=== PATIENT | female | born 1935 | race Caucasian/White ===

== ENCOUNTER → 2016-08-29 | Outpatient (CLI) | payer OTHER, MEDICARE | LOC: BRMIMAGING 08:27 | PROVIDERS: ATTEND Family Medicine | DX: Z13.820 Encounter for screening for osteoporosis (principal); M81.0 Age-related osteoporosis without current pathological fracture; Z87.81 Personal history of (healed) traumatic fracture ==

== ENCOUNTER → 2017-05-08 | Outpatient (CLI) | payer OTHER, MEDICARE | LOC: BHFA 09:00 | PROVIDERS: ATTEND Internal Medicine Cardiovascular Disease | DX: R07.9 Chest pain, unspecified (principal) ==

== ENCOUNTER → 2017-06-12 | Outpatient (CLI) | payer OTHER, MEDICARE | LOC: CIMAGING 09:28 | PROVIDERS: ATTEND Family Medicine | DX: M75.92 Shoulder lesion, unspecified, left shoulder (principal); M79.632 Pain in left forearm | CPT/HCPCS: 73030-PO; 73060-PO ==

== ENCOUNTER 2017-10-31 22:11 | Emergency (ER) | payer OTHER, MEDICARE ==
[2017-10-31] MEDS ORDERED: NS 500 ML IV ONE (22:36)
[2017-10-31] MEDS ORDERED: ONDANSETRON 4 MG/2 ML VIAL IVP ONE (22:36)
[2017-10-31] MEDS ORDERED: MECLIZINE HCL 25 MG TAB PO ONE (22:37)
--- NOTE | 2017-10-31 22:46 | EDPHY ---
H & P Smoking Status: Never smoked Time Seen by Provider: 10/31/17 22:21 HPI/ROS: CHIEF COMPLAINT: Dizziness HISTORY OF PRESENT ILLNESS: Patient was feeling well today except feeling a little more irritable than usual. At 9:00 p.m. She was watching television when she had sudden onset of dizziness which she describes as the room spinning which lasted 10 minutes. She felt very dizzy and she was worse with movement of her head and she had episodes of vomiting. After 10 minutes the dizziness subsided quite a bit and now she just feels "a little bit dizzy", and still has some nausea and isn't quite back to normal. Denies headache or ear symptoms or hearing loss. No tinnitus. Denies chest pain or weakness or numbness in extremities or confusion or any difficulty with speech associated. REVIEW OF SYSTEMS: Eye: no change in vision ENT: No ear symptoms, no change in her voice. Cardiac: no chest pain or syncope Pulmonary: no cough or SOB Abdomen: No abdominal pain or diarrhea Musculoskeletal: No neck pain Skin: no rash Neuro: HPI Constitutional: no fever : no urinary symptoms A comprehensive 10 point review of systems is otherwise negative aside from elements mentioned in the history of present illness. PAST MEDICAL HISTORY: Includes Crohn's, hypertension, TIA 2 years ago which was expressive aphasia by her description Social history: Here with spouse General Appearance: Alert and conversant, cooperative. Eyes: No scleral icterus. Pupils equal reactive extraocular motion intact, has nystagmus when head turned to her right. No ptosis. ENT, Mouth: Normal mucous membranes. Normal tympanic membranes. Hearing aids removed for exam. Respiratory: Normal respiratory effort, breath sounds equal, lungs are clear to auscultation. Cardiovascular: Regular rate and rhythm. No carotid bruit. Gastrointestinal: Abdomen is soft and non tender. Neurological: Alert, face symmetric, normal motor and sensory in extremities. Romberg negative, [id number] negative bilaterally, no pronator drift, speech is fluent. She was able to walk back to the room from triage unassisted without ataxia. Can stand on heels and on toes. Skin: Warm and dry, no rashes. Musculoskeletal: No peripheral edema. Psychiatric: Not agitated. Emergency Department course/MDM: Patient presents with vertigo which is likely peripheral in nature given sudden onset with worsening with movement, nystagmus, no headache, normal neurologic exam in ED. However given her age and history of TIA, vertebrobasilar insufficiency is also considered. After initial history and physical, ordered medications to help with her symptoms, lab, EKG, and signed out to Dr. Belle at 2300 disposition pending. Still feels thirsty and has some persistent nausea, Zofran 4 mg IV, 500 mL IV fluid bolus, EKG and CBC and chemistry panel. (Enrique French) Constitutional: Initial Vital Signs Temperature (C) 36.5 C 10/31/17 22:18 Heart Rate 55 L 10/31/17 22:18 Respiratory Rate 20 10/31/17 22:18 Blood Pressure 140/82 H 10/31/17 22:18 O2 Sat (%) 95 10/31/17 22:18 O2 Delivery Mode Room Air Allergies/Adverse Reactions: No Known Allergies Allergy (Unverified 10/31/17 22:17) Home Medications: Medication Instructions Recorded ASPIRIN 01/18/15 Alendronate Sodium 01/18/15 Bp Med 01/18/15 Fish Oil 01/18/15 Multivitamin (OTC) 01/18/15 Nitrofurantoin Macrobid [Macrobid] 100 mg PO BID #14 cap 01/18/15 Diltiazem 10/31/17 Meclizine HCl [Meclizine HCl 25 mg 25 mg PO TID PRN #15 tab 11/01/17 (RX,OTC)] Medical Decision Making - Diagnostics EKG Interpretation: EKG: Interpreted by me contemporaneously. Rhythm: Normal sinus rhythm. With first-degree block Heart rate 54 QTc 464 QRS: normal STT segment: normal T Waves: Normal Q waves none Summary: [Normal sinus rhythm with first-degree block with no old EKGs available (Krish Belle) Differential Diagnosis: Differential diagnosis considered for dizziness including but not limited to Menieres, peripheral vertigo, vertebral dissection, cerebellar stroke, orthostatic causes including dehydration, and blood loss. (Enrique French) Other Provider: Patient care assumed at [2300]. Case reviewed with the initial physician, chart reviewed. Patient interviewed examined The patient has received 4 mg of IV Zofran along with 25 mg of Meclizine PO. Laboratory studies have been conducted and occlude the following: Normal CBC Normal electrolytes Mild chronic renal insufficiency with a point of care creatinine 1.2 = this is compared to a laboratory creatinine of 1.0 this past February Mild hyperglycemia as blood sugar is postprandial Patient reports market improvement in symptomatology. She is able to ambulate well. Her Romberg testing is negative. She is worse with movement and looking around the room indicative of a peripheral vertigo process. She has had moderate improvement with the Zofran and meclizine combination thus will continue meclizine as an outpatient. Nothing on clinical exam and clinical course suggest a central process. (Krish Belle) - Data Points Medications Given: Discontinued Medications Sodium Chloride (Ns) 500 mls @ 0 mls/hr IV EDNOW ONE; Wide Open PRN Reason: Protocol Stop: 10/31/17 22:37 Last Admin: 10/31/17 22:48 Dose: 500 mls Meclizine HCl (Meclizine Hcl) 25 mg PO EDNOW ONE Stop: 10/31/17 22:38 Last Admin: 10/31/17 23:06 Dose: 25 mg Meclizine HCl (Meclizine Hcl) 25 mg PO ONCE ONE Stop: 11/01/17 00:52 Last Admin: 11/01/17 00:59 Dose: 25 mg Ondansetron HCl (Zofran) 4 mg IVP EDNOW ONE Stop: 10/31/17 22:37 Last Admin: 10/31/17 22:48 Dose: 4 mg Point of Care Test Results: CBC CBC Collection Date 10/31/17 CBC Collection Time 22:40 WBC 6.1 RBC 4.28 HGB 13.2 HCT 39.9 PLT 248 Neut # 3.0 Neut 48.5 LYMPH # 2.5 LYMPH 41.5 Other WBC # 0.6 Other WBC 10.0 MCV 93.2 Chemistry 10/31/17 22:51 POC Sodium 143 mEq/L mEq/L (135-145) POC Potassium 3.5 mEq/L mEq/L (3.3-5.0) POC Chloride 104.0 mEq/L mEq/L (97-110) POC Total CO2 26 mEq/L mEq/L (22-31) POC BUN 17 mg/dL mg/dL (7-23) POC Creatinine 1.2 mg/dL H mg/dL (0.6-1.0) POC Glucose 105 mg/dL H mg/dL (70-100) POC Calcium 9.1 mg/dL mg/dL (8.5-10.4) Departure - Departure Disposition: Home, Routine, Self-Care Clinical Impression: Peripheral vertigo, unspecified Condition: Good Instructions: Vertigo (ED) Additional Instructions: Try to avoid those specific movements that cause your symptoms. 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 However, driving would be particularly worrisome if you had such repeated symptoms thus, do not do drive. I expect you to be sensitive to changes in position, but likewise, I expect the symptoms to not get worse over the next week. Thus if your feeling worse, you need to return immediately. The following medication is designed to make her symptoms him feel better however they will not shorten the course of illness which I expect to take 1 week. Meclizine 25 mg 3 times daily as needed. Tomorrow, he had clear family physician for follow-up either the end of this week or 1st next. If her symptoms reoccur and did not clear up by remaining still then you need to return immediately. Referrals: Yumiko Davila MD [Medical Doctor] - 5-7 days, call for appt. Prescriptions: Meclizine HCl [Meclizine HCl 25 mg (RX,OTC)] 25 mg PO TID PRN #15 tab PRN Reason: Dizziness
--- NOTE | 2017-10-31 23:04 | CPEKG ---
Test Reason : OPEN Blood Pressure : / mmHG Vent. Rate : 054 BPM Atrial Rate : 053 BPM P-R Int : 218 ms QRS Dur : 080 ms QT Int : 489 ms P-R-T Axes : 073 056 059 degrees QTc Int : 464 ms Sinus rhythm, first degree block with IN > 200ms. Borderline prolonged IN interval Confirmed by Krish Belle ([id number]) on 10/31/2017 11:03:52 PM Referred By: Confirmed By:Krish Belle
[2017-11-01] MEDS ORDERED: MECLIZINE HCL 25 MG TAB PO ONE (00:51)
[2017-11-01 01:08] VITALS: BP 156/81
== END 2017-11-01 01:10 | disposition home or self-care (01) ==
LOC: CED 22:11
DX: R42 Dizziness and giddiness (principal); I44.0 Atrioventricular block, first degree; I10 Essential (primary) hypertension; E86.9 Volume depletion, unspecified
CPT/HCPCS: 93005; 96361; 96374; 99284; J2405; 80048-PO